=== PATIENT | male | born 1980 | race African-American/Black ===

== ENCOUNTER 2017-03-11 13:28 | Observation (INO) | payer OTHER ==
[2017-03-11] MEDS ORDERED: NS 0.9% 1000 ML* 1,000 ML IV ONE (13:31)
[2017-03-11 14:24] LABS: Hematocrit 43 % (42-52); Hemoglobin 14.3 g/dl (14.0-18.0); Mean Corpuscular HGB Conc 33 g/dl (31-36); Mean Corpuscular Hemoglobin 29 pg (27-31); Mean Corpuscular Volume 88 fL (80-94); Mean Platelet Volume 8 um3 (7.4-10.4); Red Blood Count 4.86 10^6/ul (4.0-5.4); Red Cell Distribution Width 13 % (10.5-15); White Blood Count 7.2 10^3/ul (3.5-10.8)
--- NOTE | 2017-03-11 14:30 | RAD ---
INDICATION: Seizure. COMPARISON: There are no prior studies available for comparison. TECHNIQUE: A portable view of the chest was obtained. FINDINGS: Cardiac and mediastinal contours appear to be within normal limits. The lungs are underinflated. There is a small infiltrate at the right lung base suggestive of atelectasis. The lungs are otherwise clear. No pleural effusion is seen. IMPRESSION: LOW LUNG VOLUMES, SMALL RIGHT BASILAR INFILTRATE SUGGESTIVE OF ATELECTASIS.
[2017-03-11 14:37] LABS: Albumin 4.3 g/dL (3.2-5.2); BUN/Creatinine Ratio 11.9 (8-20); EGFR African American 108.1 (>60); EGFR Non-African American 84.1 (>60); Globulin 2.8 g/dL (2-4); Magnesium 2.1 mg/dL (1.9-2.7); Potassium 3.9 mmol/L (3.5-5.0); Total Bilirubin 0.5 mg/dL (0.2-1.0); Total Protein 7.1 g/dL (6.4-8.9)
[2017-03-11 15:34] LABS: TSH (Thyroid Stimulating Horm) 0.33 mcIU/mL (0.34-5.60)
--- NOTE | 2017-03-11 16:05 | RAD ---
INDICATION: Seizure. COMPARISON: There are no prior studies available for comparison. TECHNIQUE: Contiguous axial sections of the brain were obtained from the skull base to the vertex without contrast. FINDINGS: The ventricles, cisterns and sulci are within normal limits. No significant focal abnormality or mass effect is seen. There is no evidence for hemorrhage. There are prominent adenoids present. The visualized portion of the paranasal sinuses appear clear. There are coalescent mastoid air cells present on the left side possibly representing postsurgical change versus chronic mastoiditis with increased density possibly representing an effusion or granulation tissue. The right mastoid air cells appear clear. IMPRESSION: 1. NO EVIDENCE FOR ACUTE INTRACRANIAL ABNORMALITY. 2. COALESCENT LEFT MASTOID AIR CELLS POSSIBLY REPRESENTING POSTSURGICAL CHANGE VERSUS CHRONIC MASTOIDITIS WITH ASSOCIATED OF FLUID OR GRANULATION TISSUE.
[2017-03-11] MEDS ORDERED: Acetaminophen TAB* 325 MG PO PRN (17:20)
[2017-03-11] MEDS ORDERED: Nicotine GUM* 2 MG PO PRN (17:39)
[2017-03-11] MEDS ORDERED: Nicotine Inhaler* 10 MG AMP INH PRN (17:39)
--- NOTE | 2017-03-11 18:29 | ED ---
Rin Power Alfonso, scribed for Sky Reyes MD on 03/11/17 at 1351 . Complex/Multi-Sys Presentation - HPI Summary HPI Summary: This patient is a 37 year old M BIBA from 5 points to [facility] accompanied by correctional services s/p a witnessed seizure earlier today. Patient reports I smoked a cigarette, walked to the water fountain, and I dont remember nothing else. The patient rates the pain 0/10 in severity. Symptoms aggravated by nothing. Symptoms alleviated by spontaneous resolution. Patient reports vomiting (twice), LOC (unknown length), foaming at the mouth, and biting his tongue. - History Of Current Complaint Chief Complaint: EDSyncope Time Seen by Provider: 03/11/17 13:31 Hx Obtained From: Patient Onset/Duration: Sudden Onset, Resolved Timing: Constant Aggravating Factor(s): nothing Alleviating Factor(s): spontaneous resolution Associated Signs And Symptoms: Positive: Other - vomiting (twice), LOC (unknown length), foaming at the mouth, and biting his tongue. - Allergies/Home Medications Allergies/Adverse Reactions: Allergies Allergy/AdvReac Type Severity Reaction Status Date / Time Iodine Allergy Anaphylatic Verified 03/11/17 14:19 Shock Shrimp Flavor Allergy Anaphylatic Verified 03/11/17 14:19 Shock PMH/Surg Hx/FS Hx/Imm Hx Respiratory History: Reports: Hx Sleep Apnea Neurological History: Reports: Other Neuro Impairments/Disorders - insomnia Psychiatric History: Reports: Hx Depression, Hx Post Traumatic Stress Disorder - Immunization History Date of Influenza Vaccine: 01/2017 Immunizations Up to Date: Yes Infectious Disease History: No Infectious Disease History: Denies: Traveled Outside the [place] in Last 30 Days - Family History Known Family History: Positive: Seizure Disorder - neice - Social History Alcohol Use: None Substance Use Type: Reports: None Hx Tobacco Use: Yes Smoking Status (MU): Heavy Every Day Tobacco Smoker Amount Used/How Often: 1 PPD Review of Systems Negative: Fever Positive: Vomiting Neurological: Other - Seizure, LOC (unknown length), foaming at the mouth, and biting his tongue. All Other Systems Reviewed And Are Negative: Yes Physical Exam - Summary Physical Exam Summary: VITAL SIGNS: Reviewed. GENERAL: Patient is a well-developed and nourished male who is lying comfortable in the stretcher. Patient is not in any acute respiratory distress. HEAD AND FACE: No signs of trauma. No ecchymosis, hematomas or skull depressions. No sinus tenderness. EYES: PERRLA, EOMI x 2, No injected conjunctiva, no nystagmus. EARS: Hearing grossly intact. Ear canals and tympanic membranes are within normal limits. MOUTH: Oropharynx within normal limits. Left side of tip of tongue abrasion. NECK: Supple, trachea is midline, no adenopathy, no JVD, no carotid bruit, no c- spine tenderness, neck with full ROM. CHEST: Symmetric, no tenderness at palpation LUNGS: Clear to auscultation bilaterally. No wheezing or crackles. CVS: Regular rate and rhythm, S1 and S2 present, no murmurs or gallops appreciated. ABDOMEN: Soft, non-tender. No signs of distention. No rebound no guarding, and no masses palpated. Bowel sounds are normal. EXTREMITIES: FROM in all major joints, no edema, no cyanosis or clubbing. NEURO: Alert and oriented x 3. No acute neurological deficits. Speech is normal and follows commands. SKIN: Dry and warm Triage Information Reviewed: Yes Vital Signs On Initial Exam: Initial Vitals Temp Pulse Resp BP Pulse Ox 97.8 F 96 16 107/66 98 03/11/17 13:36 03/11/17 13:36 03/11/17 13:36 03/11/17 13:36 03/11/17 13:36 Vital Signs Reviewed: Yes - Crystal Coma Scale Coma Scale Total: 14 Diagnostics - Vital Signs Vital Signs Temp Pulse Resp BP Pulse Ox 03/11/17 13:36 97.8 F 96 16 107/66 98 - Laboratory Result Diagrams: 03/11/17 13:51 03/11/17 13:51 Lab Statement: Any lab studies that have been ordered have been reviewed, and results considered in the medical decision making process. - Radiology CXR Radiology Interpretation Completed By: Radiologist - LOW LUNG VOLUMES, SMALL RIGHT BASILAR INFILTRATE SUGGESTIVE OF ATELECTASIS. ED physician has reviewed this radiology report and agrees. - CT Brain CT Interpretation Completed By: Radiologist - 1. NO EVIDENCE FOR ACUTE INTRACRANIAL ABNORMALITY. 2. COALESCENT LEFT MASTOID AIR CELLS POSSIBLY REPRESENTING POSTSURGICAL CHANGE VERSUS CHRONIC MASTOIDITIS WITH ASSOCIATED OF FLUID OR GRANULATION TISSUE. ED physician has reviewed this radiology report and agrees. - EKG 1358 Cardiac Rate: NL EKG Rhythm: Sinus Rhythm - 96 BPM EKG Interpretation: Early repolarization pattern. Normal axis. Complex Multi-Symp Course/Dx Assessment/Plan: This patient is a 37 year old M BIBA from [facility] [place] to [facility] accompanied by correctional services s/p a witnessed seizure earlier today. Patient reports I smoked a cigarette, walked to the water fountain, and I don t remember nothing else. The patient rates the pain 0/10 in severity. Symptoms aggravated by nothing. Symptoms alleviated by spontaneous resolution. Patient reports vomiting (twice), LOC (unknown length), foaming at the mouth, and biting his tongue. An EKG reveals Sinus rhythm at 96 BPM. Early repolarization pattern. Normal axis. CXR reveals, per radiologist, LOW LUNG VOLUMES, SMALL RIGHT BASILAR INFILTRATE SUGGESTIVE OF ATELECTASIS. ED physician has reviewed this radiology report and agrees. CT Brain reveals, per radiologist, 1. NO EVIDENCE FOR ACUTE INTRACRANIAL ABNORMALITY. 2. COALESCENT LEFT MASTOID AIR CELLS POSSIBLY REPRESENTING POSTSURGICAL CHANGE VERSUS CHRONIC MASTOIDITIS WITH ASSOCIATED OF FLUID OR GRANULATION TISSUE. ED physician has reviewed this radiology report and agrees. Test results with no significant abnormalities. I consulted Dr. Aggarwal (neurologist) who recommended admission for a possible MRI and EEG tomorrow. Consulted Dr. Riggs (hospitalist) at 1611 who agrees to admit. Patient will be admitted to [facility] with follow up from Dr. Riggs. The patient is agreeable with this plan. The patient is hemodynamically stable, alert and oriented x3. - Diagnoses Provider Diagnoses: Seizure - Physician Notifications Discussed Care Of Patient With: Maryam Riggs Time Discussed With Above Provider: 16:11 Instructed by Provider To: Other - Consulted Dr. Riggs (hospitalist) at 1611 who agrees to admit. Discharge - Discharge Plan Condition: Stable Disposition: ADMITTED TO [facility] Referrals: Elizabeth CHRISTIANSON,Conor Guevara [Primary Care Provider] - The documentation as recorded by the Rin garcia Alfonso accurately reflects the service I personally performed and the decisions made by me, Sky Reyes MD.
[2017-03-11 19:22] LABS: Free T4 0.73 ng/dL (0.61-1.12)
[2017-03-11] MEDS ORDERED: diPHENhydraMINE PO* 50 MG PO SCH (21:00)
[2017-03-11] MEDS ORDERED: busPIRone TAB* 10 MG PO SCH (21:00)
[2017-03-11] MEDS ORDERED: Nicotine Patch Removal NOTE PATCH OFF SCH (21:00)
--- NOTE | 2017-03-11 22:24 | HP ---
CC: Providers at [facility] * HISTORY AND PHYSICAL: DATE OF ADMISSION: 03/11/17 ATTENDING PHYSICIAN: Maryam Avendano MD * (dictation provided by Catherine Fuller NP ). CHIEF COMPLAINT: Being found unresponsive with question of seizure activity. HISTORY OF PRESENT ILLNESS: Mr. Fontana is a 37-year-old male with past medical history of PTSD, who presents to the hospital today from [facility] with concern for an episode where he was found unresponsive. Per Mr. Fontana, he has been doing well with no acute complaints. He was feeling well today. He states that he ate and then smoked a cigarette and thereafter was found in his cell unresponsive. Staff there note that he was observed to be shaking at one point. He did bite his tongue. The first thing he remembers is being moved from the bed onto the stretcher by EMS while still at [facility]. He denies having a seizure before. He has no headache. He has report of a traumatic injury in the past where he required stitches to his head but he denies that he was not admitted to the hospital. In the emergency room, Mr. Fontana had a CT of the brain, which showed no acute abnormality. He had a chest x-ray which showed low lung volumes on EKG, which showed sinus rhythm and no evidence of ischemia. PAST MEDICAL HISTORY: PTSD, obstructive sleep apnea. MEDICATIONS: 1. BuSpar 20 mg p.o. daily. 2. Benadryl p.r.n. ALLERGIES: To IODINE and SHRIMP FLAVOR. FAMILY HISTORY: The patient reports his father was killed and his mother related to heroin overdose. SOCIAL HISTORY: The patient smokes about 2 cigarettes a day. He denies any alcohol or drug use as he is currently in [place]. He is unable to name a healthcare proxy. REVIEW OF SYSTEMS: A 14-point review of systems was completed with Mr. Fontana and all those not mentioned above were negative. PHYSICAL EXAMINATION GENERAL: Mr. Fontana is sitting up in the bed with two guards at the bedside. VITAL SIGNS: Temperature 97.8, heart rate 74, respiratory rate 16, blood pressure 100/70, O2 saturation 100% on room air. LUNGS: Clear to auscultation bilaterally with no accessory muscle use and good aeration. HEART: S1, S2. No murmur, rub, or gallop and regular. ABDOMEN: Soft, nontender with bowel sounds positive x4. EXTREMITIES: No cyanosis or edema. NEUROLOGIC: He is alert. He is oriented x3. He moves all extremities equally. There is no facial asymmetry or focal weakness. Extraocular movements are intact. No ataxia with [id number] or with [id number]. He has no pronator drift. SKIN: Intact. DIAGNOSTIC STUDIES/LAB DATA: WBC 7.2, hemoglobin 14.3, hematocrit 43, platelet count 257,000. INR 1.01. Sodium 135, potassium 3.9, chloride 102, serum bicarbonate 28, BUN 12, creatinine 1.01. Lactic acid 1.6. TSH 0.33. CT brain shows no acute abnormalities. Chest x-ray shows low lung volumes. EKG shows sinus rhythm with heart rate of 90. ASSESSMENT/PLAN: Mr. Fontana is a 37-year-old male, resident of [facility], who was found unresponsive in his cell today. There has been report of possible shaking body movements and he did bite his tongue, therefore has high suspicion for seizure. Our plans are for observation in the hospital for the followin. Seizure: This case has been reviewed with Dr. Aggarwal from Neurology and he recommended that the patient stay in the hospital for an MRI of the brain, EEG, and neurology consultation. The patient will have seizure precautions. He will be monitored on the telemetry unit. 2. Posttraumatic stress disorder: Continue BuSpar. 3. Code status: Full code. 4. DVT prophylaxis: With early mobility. 5. Disposition: To telemetry. TIME SPENT: Approximately 60 minutes was spent in admission of this patient, more than half of the time was spent with the patient at the bedside reviewing the events leading up to this hospitalization, performing the physical examination, and reviewing my plan of care. CATHERINE FULLER NP [id number]/NELL #: [id number] JOSE LUIS
[2017-03-12] MEDS ORDERED: Nicotine PATCH 21 MG/24 HR* PATCH TRANSDERM SCH (08:00)
[2017-03-12] MEDS ORDERED: busPIRone TAB* 10 MG PO SCH (09:00)
[2017-03-12 13:16] LABS: Urine Bilirubin Negative (Negative); Urine Glucose Negative (Negative); Urine Nitrite Negative (Negative)
--- NOTE | 2017-03-12 13:45 | RAD ---
Indication: Seizures. Image sequences: Sagittal and axial T1, axial T2, FLAIR, diffusion and susceptibility weighted images of the brain were obtained. Coronal T2 and T1 thin section images were obtained. Ventricular structures are midline. No midline shift is noted. The extra-axial spaces are unremarkable. There is no evidence of intracranial mass or hemorrhage. No other high or low density lesions are identified. No evidence of hippocampal modality is noted. The FLAIR images demonstrates no evidence of vasogenic edema. No restriction of diffusion is noted. No evidence of susceptibility weighted artifact is noted. IMPRESSION: No intracranial lesion is identified.
[2017-03-12 16:45] VITALS: BP 123/81
[2017-03-12] MEDS ORDERED: Divalproex DR TAB(*) 500 MG PO ONE (18:00)
[2017-03-12] MEDS ORDERED: Divalproex DR TAB(*) 500 MG PO SCH (21:00)
--- NOTE | 2017-03-12 21:54 | CONS ---
CONSULTATION REPORT: DATE OF CONSULT/DICTATION: 03/12/17 HISTORY OF PRESENT ILLNESS: This is a 37-year-old man, who has had no prior history of seizures, who lives with his roommate in senior living, sitting and without any aura, lightheadedness, or any other warning went into an apparent generalized convulsion. He had recently eaten and smoked a cigarette. The length of the convulsion is unclear how long it lasted. He did bite his tongue and he apparently vomited during the episode and was confused afterwards. He has never had prior seizures. There was no headache. There is no clear family history for seizures. He has had some head trauma in the past but none that required a hospital visit. PAST MEDICAL HISTORY: He has posttraumatic stress disorder. MEDICATIONS: He is on: 1. BuSpar 20 mg daily. 2. Benadryl p.r.n. ALLERGIES: He is allergic to IODINE and SHRIMP FLAVOR. FAMILY HISTORY: Significant for father, who was traumatically killed and mother who from a heroin overdose. SOCIAL HISTORY: He smokes about 2 cigarettes a day. He does not use drugs or alcohol. He is at [place]. REVIEW OF SYSTEMS: Negative in all 14 spheres other than HPI. PHYSICAL EXAM: Temperature 98.2, pulse 96, respiratory rate 16, blood pressure 123/77. He is alert and oriented with normal speech and comprehension. Cranial nerves II through XII are intact. Fundi were benign. Motor exam reveals normal tone, strength, and coordination. Sensation is intact to light touch. Reflexes were 2 and equal. Downgoing toes. Chest: Clear. Cardiovascular: Regular rate and rhythm. Abdomen: Soft with positive bowel sounds. There is no edema or rash. DIAGNOSTIC STUDIES: CT scan of his head showed no acute intracranial pathology. There was some left mastoid fluid or granulation. He notes that he has had some discharge from that left ear. IMPRESSION AND PLAN: I discussed with Mr. Fontana that from the description he had a seizure without warning. The workup would include an MRI scan and EEG which is being obtained, but even in the MRI scan, most of the time is normal, although we could see a small scar. The EEG often is normal and yet he could still have recurrent seizures and this would happen about 50% of the time. He said he absolutely wanted to be treated for seizures and just not want to have any further seizures. I am going to treat him with Depakote because the Keppra could make his posttraumatic stress disorder worse. The Depakote is more likely to stabilize his mood. I have discussed the side effects with him and please let me know if he has a fever or rash, we will need to have levels checked in liver, CMP and CBC checked, and I will be glad to see him back as needed. He knows that he cannot drive until for now (once he is out of the skilled nursing) and he should avoid high heights, heavy machinery, and being unsupervised around water such as baths, pools, etc. He sleeps in the top bunk and it would be more safe if he slept in the bottom of the bunk even if he is on the Depakote. Thank you for sharing his case. [id number]/[facility] #: [id number] JOSE LUIS
--- NOTE | 2017-03-13 18:16 | DS ---
CC: Dr. Conor Johnson * DISCHARGE SUMMARY: DATE OF ADMISSION: 03/11/17 DATE OF DISCHARGE: 03/12/17 ATTENDING PHYSICIAN WHILE IN THE HOSPITAL: Dr. Zuly Frias * (DICTATED BY JAKOB GARCIA) PRIMARY CARE PHYSICIAN: Dr. Conor Johnson of [facility]. CONSULTING PROVIDERS: Reese Aggarwal MD of Neurology. PRIMARY DISCHARGE DIAGNOSES: 1. Seizure. 2. Rupture of left tympanic membrane. SECONDARY DISCHARGE DIAGNOSES: 1. Obstructive sleep apnea. 2. Posttraumatic stress disorder. STUDIES DONE WHILE IN THE HOSPITAL: 1. Chest x-ray for admission read as low lung volume, small right basilar infiltrate suggestive of atelectasis. 2. Electrocardiogram from 03/11/17 shows rate of 96, early repolarization V1, V2, V3, normal axis, no ST segment abnormalities, QTc of 449, no other abnormalities. 3. Brain CT from 03/11/17 read as no evidence for acute intracranial abnormality, coalescent left mastoid air cells, possibly representing post surgical change versus chronic mastoiditis with associated fluid or granulation tissue. 4. Brain MRI from 03/12/17 read as no intracranial lesion noted. Additional read from this provider and neurologist shows right-sided mastoid effusion with otitis with fluid in the ear canal. MEDICATIONS AT DISCHARGE: 1. BuSpar 20 mg p.o. q.p.m. 2. Benadryl 50 mg p.o. q.p.m. 3. Depakote 500 mg p.o. b.i.d. Discontinued medications at discharge: None. New medications at discharge: Depakote. HOSPITAL COURSE: This is a brief summary of the patient's presentation. For more details, please see the history and physical from Catherine Fuller NP on . In brief, the patient is a 37-year-old male with past medical history as above, who was found by his cellmate at [facility] where he was unresponsive after smoking a cigarette. The patient was noted to be shaking, at one point the patient bit his tongue. The patient does not remember the episode. The patient has a history of traumatic injury to his head with loss of consciousness several years ago. The patient was admitted to the hospital for concern for seizure. The patient had no seizure activity overnight. The patient's MRI was read as above. Neurology consult determined this was most likely the first episode of seizure and the patient stated that he would like to be treated to not have the seizure again. The patient was started on Depakote and was agreeable to be discharged to [facility]. The patient's EEG was pending read at the time of discharge; however, the neurologist stated that the results of the EEG would not affect his management and he will be able to be discharged at this time. PHYSICAL EXAMINATION ON THE DAY OF DISCHARGE: General: The patient is a 37- year- old male who appears his stated age and is sitting comfortably in the bed in no acute distress. Vital Signs: At the time of discharge, temperature 98.5, pulse rate of 73, respiratory rate 18, oxygen saturation 98% on room air, blood pressure 123/81. HEENT: Head: Normocephalic, atraumatic. Sclerae anicteric. No conjunctival injection. Right tympanic membrane intact with no bulging, erythema, or effusion. Left tympanic membrane appears to be ruptured with fluid and black or bloody discharge in the ear canal as well as a small amount of cerumen. There is no tenderness to palpation of the patient's mastoid process or pain with movement of the ear or palpation of the tragus. Pharynx: Not erythematous. The patient has a laceration on the right side of his tongue. Oral mucosa moist. Neck: Supple, nontender. No lymphadenopathy. Cardiac: Regular rate and rhythm. No clicks, murmurs, gallops, or rubs. Pulse is 2+ in the bilateral radial, dorsalis pedis, and posterior tibialis areas. No edema noted in the lower extremities. Respiratory: Clear to auscultation bilaterally. No wheezes, rales, or rhonchi. Abdomen: Bowel sounds present, normoactive in all 4 quadrants, nondistended, nontender to palpation. No hepatosplenomegaly. No abdominal bruits auscultated. Genitourinary: No CVA tenderness or suprapubic tenderness. Skin: Clean, dry, intact. Neuro: Cranial nerves II through XII intact. Strength and sensation to light touch preserved in the upper and lower extremities distally and proximally. Reflexes are 2+ bilaterally in the biceps, quadriceps, and Achilles areas. Babinski is downgoing bilaterally. Cerebellar testing intact. Psychiatric: Pleasant and cooperative. LABORATORY DATA: White blood cell count 7.2, hemoglobin 14.3, platelet count 257, INR 1.01. Sodium 135, potassium 3.9, chloride 102, carbon dioxide 28, anion gap 5, BUN 12, creatinine 1.01, glucose 85, lactic acid 1.6, calcium 9.0, magnesium 2.1. Bilirubin 0.5, AST 17, ALT 11, alkaline phosphatase 56. Total protein 7.1, albumin 4.3, globulin 2.8. TSH 0.33, free T4 0.73. Urine benign. DISCHARGE PLAN: The patient will be discharged back to [facility] on Depakote as above. The patient should follow up with the facility physician within 1 week to document that he is tolerating the medication without side effects. The patient should have laboratory work done in 2 to 3 weeks including a CBC, BMP, and Depakote level to ensure he is therapeutic and adjustment should be made at that point. The patient should follow up with ear, nose, and throat doctor outpatient to address his possible ruptured tympanic membrane and possible chronic mastoiditis, which has been going on for 10 years to this point. Treatment was deferred at this time due to the patient having no complaints other than ear drainage and moderate extermination supervisor hearing loss. The patient should return to the hospital for recurrent seizures or other alarming symptoms. The patient should have a normal unrestricted diet. The patient should consider stopping smoking. The patient should have activity as tolerated. The patient should be transferred to the bottom bunk in his cell due to possible injury from seizure activity. The patient should avoid other activities in the short-term that would result in probable if he were to have seizures such as swimming or operating heavy machinery. TIME SPENT: Approximately 60 minutes were spent on this discharge, 30 of which was spent [id number] with the patient, obtaining history and physical, and discussing treatment plan. JAKOB GARCIA [id number]/[facility] #: [id number] JOSE LUIS
--- NOTE | 2017-03-14 05:05 | EEG ---
ELECTROENCEPHALOGRAPHY: DATE OF STUDY: 03/12/17 DATE OF DICTATION: 03/13/17 PATIENT OF: Catherine Fuller NP HISTORY: This is a 37-year-old man presenting with new onset of seizure. MEDICATIONS: Include: 1. BuSpar. 2. Benadryl. 3. Nicotine patch. INTERPRETATION: With the patient awake, background cerebral activity consists of moderate amplitude posterior dominant 9 to 10 Hz rhythm, which attenuates with eye opening and reappears with eye closure. No epileptiform potentials, focal abnormalities, or major asymmetries of background are noted. IMPRESSION: Awake EEG is within normal limits. [id number]/[facility] #: [id number]
== END 2017-03-12 18:00 | disposition home or self-care (01) ==
LOC: ED 13:28 → EEVIPCON 16:14 → MEDTELE 16:14
PROVIDERS: ADMIT Internal Medicine; ATTEND Hospitalist
DX: R56.9 Unspecified convulsions (principal); H72.92 Unspecified perforation of tympanic membrane, left ear; G47.33 Obstructive sleep apnea (adult) (pediatric); F43.10 Post-traumatic stress disorder, unspecified; J98.11 Atelectasis; R94.31 Abnormal electrocardiogram [ECG] [EKG]; H66.91 Otitis media, unspecified, right ear; Z79.899 Other long term (current) drug therapy; R00.0 Tachycardia, unspecified; F17.210 Nicotine dependence, cigarettes, uncomplicated; R55 Syncope and collapse; R00.1 Bradycardia, unspecified
CPT/HCPCS: 36415; 70450; 70551; 71010; 80053; 81003; 83605; 83735; 84439; 84443; 85025; 85610; 93005; 94660; 95816; 96360; 99282; 99406; A9270-GY; G0378